=== PATIENT | female | born 1945 | race Caucasian/White ===

== ENCOUNTER 2019-08-26 15:54 | Emergency (ER) | payer MEDICARE, OTHER ==
[2019-08-26] MEDS ORDERED: Amoxicillin/Clavulanate K 875-125 MG Tab PO ONE (16:30)
--- NOTE | 2019-08-26 16:37 | EDM.PDOC ---
ED HPI GENERAL MEDICAL PROBLEM - General Chief Complaint: Skin Complaint Stated Complaint: SKIN COMPLAINT R HAND Time Seen by Provider: 08/26/19 16:05 Source of Information: Reports: Patient History Limitations: Reports: No Limitations - History of Present Illness INITIAL COMMENTS - FREE TEXT/NARRATIVE: Patient is a 73-year-old female who presents with complaints of right thumb pain and rash to the right hand and lower forearm. She states she awoke with the pain and rash this morning. She has no history of gout, however she does have arthritis. There was no known injury to the area. Patient does have a mostly healed scratch on her right forearm which she states was from a cat bite. There was no puncture wound. She states at the time of the injury it was cleansed and bacitracin was applied. Denies any fever, chills, nausea, or vomiting. Right Finger-Thumb Pain Score (Numeric/FACES): 5 - Related Data Allergies Allergy/AdvReac Type Severity Reaction Status Date / Time acyclovir [From Zovirax] Allergy Other Verified 08/26/19 16:08 codeine Allergy Other Verified 08/26/19 16:08 latex Allergy Blisters Verified 08/26/19 16:08 Home Meds: Home Meds Amoxicillin/Clavulanate K [Augmentin 875-125 MG] 1 tab PO BID 10 Days #19 tablet 08/26/19 [Rx] Past Medical History Cardiovascular History: Reports: High Cholesterol, Hypertension Respiratory History: Reports: Sleep Apnea Gastrointestinal History: Reports: GERD Genitourinary History: Reports: Other (See Below) Other Genitourinary History: over active bladder Musculoskeletal History: Reports: Fibromyalgia Psychiatric History: Reports: Depression Oncologic (Cancer) History: Reports: Cervix - Past Surgical History HEENT Surgical History: Reports: Oral Surgery GI Surgical History: Reports: Hernia, Abdominal, Other (See Below) Other GI Surgeries/Procedures: lap band/removal Female Surgical History: Reports: Hysterectomy, Tubal Ligation Musculoskeletal Surgical History: Reports: Arthroscopic Procedure, Other (See Below) Other Musculoskeletal Surgeries/Procedures:: foot sx Social & Family History - Family History Family Medical History: Noncontributory - Tobacco Use Smoking Status *Q: Never Smoker - Caffeine Use Caffeine Use: Reports: None - Recreational Drug Use Recreational Drug Use: No ED ROS GENERAL - Review of Systems Review Of Systems: Comprehensive ROS is negative, except as noted in HPI. ED EXAM, SKIN/RASH Exam: See Below Exam Limited By: No Limitations General Appearance: Alert, WD/WN, No Apparent Distress Respiratory/Chest: No Respiratory Distress, Lungs Clear, Normal Breath Sounds, No Accessory Muscle Use, Chest Non-Tender Cardiovascular: Normal Peripheral Pulses, Regular Rate, Rhythm, No Edema, No Gallop, No JVD, No Murmur, No Rub Extremities: Other (Scattered red welts to the right hand and forearm. Pain to the thenar eminence with palpation or movement of the thumb. Mostly healed healed 1 cm scratch to the right midforearm. 2 cm linear welt to the right lateral wrist.) Neurological: Alert, Oriented, CN II-XII Intact, Normal Cognition, Normal Gait, Normal Reflexes, No Motor/Sensory Deficits Psychiatric: Normal Affect, Normal Mood Course - Vital Signs Last Recorded V/S: Last Vital Signs Temp 97.9 F 08/26/19 16:05 Pulse 100 08/26/19 16:05 Resp 15 08/26/19 16:05 BP 134/79 08/26/19 16:05 Pulse Ox 98 08/26/19 16:05 - Orders/Labs/Meds Orders: Active Orders 24 hr Category Date Time Status Amoxicillin/Clavulanate K [Augmentin 875 MG/125 MG] Med 08/26/19 16:30 Once 1 tab PO ONETIME ONE DME for Discharge [COMM] Routine Oth 08/26/19 16:31 Ordered - Re-Assessments/Exams Free Text/Narrative Re-Assessment/Exam: On exam, patient skin assessment almost has the appearance of allergic urticaria , however in light of the cat bite on her forearm pain in her thenar eminence, we will treat with Augmentin. Also ordered a thumb spica splint for comfort. Discharge instructions as noted. Departure - Departure Time of Disposition: 16:37 Disposition: Home, Self-Care 01 Condition: Fair Clinical Impression: Hand pain, right - Discharge Information *PRESCRIPTION DRUG MONITORING PROGRAM REVIEWED*: No *COPY OF PRESCRIPTION DRUG MONITORING REPORT IN PATIENT RAFAEL: No Prescriptions: Amoxicillin/Clavulanate K [Augmentin 875-125 MG] 1 tab PO BID 10 Days #19 tablet Referrals: Burke Nesbitt MD [Primary Care Provider] - Additional Instructions: You were seen in the emergency department today for right thumb pain as well as a rash to your right hand and forearm. As we discussed, with the cat bite on your forearm, there is a possibility of infection; therefore, you have been started on Augmentin. Take this medication as prescribed and ensure you complete the entire course. You may use over the counter Aleve to treat the pain an discomfort. You have also been provided with a right wrist splint that you may wear for comfort. You should see improvement in your symptoms over the next 48-72 hours. If you experience any worsening symptoms of fail to improve as expected, please return to the emergency department or follow-up with your primary care provider. Sepsis Event Note - Evaluation Sepsis Screening Result: No Definite Risk - Focused Exam Vital Signs: Vital Signs Temp Pulse Resp BP Pulse Ox 08/26/19 16:05 97.9 F 100 15 134/79 98 Date Exam was Performed: 08/26/19 Time Exam was Performed: 16:32 - My Orders Last 24 Hours: My Active Orders 08/26/19 16:30 Amoxicillin/Clavulanate K [Augmentin 875 MG/125 MG] 1 tab PO ONETIME ONE 08/26/19 16:31 DME for Discharge [COMM] Routine - Assessment/Plan Last 24 Hours: My Active Orders 08/26/19 16:30 Amoxicillin/Clavulanate K [Augmentin 875 MG/125 MG] 1 tab PO ONETIME ONE 08/26/19 16:31 DME for Discharge [COMM] Routine
== END 2019-08-26 16:52 | disposition home or self-care (01) ==
LOC: JD.ED 15:54
DX: M79.641 Pain in right hand (principal); L50.0 Allergic urticaria; I10 Essential (primary) hypertension; Z88.5 Allergy status to narcotic agent; Z91.040 Latex allergy status; Z88.8 Allergy status to other drugs, medicaments and biological substances
CPT/HCPCS: 29125; 99283; A9270

== ENCOUNTER 2019-10-08 15:43 | Emergency (ER) | payer MEDICARE, OTHER ==
--- NOTE | 2019-10-08 16:35 | EDM.PDOC ---
ED HPI GENERAL MEDICAL PROBLEM - General Chief Complaint: Abdominal Pain Stated Complaint: SURG TUES DRAINING BLOOD Time Seen by Provider: 10/08/19 16:06 Source of Information: Reports: Patient History Limitations: Reports: No Limitations - History of Present Illness INITIAL COMMENTS - FREE TEXT/NARRATIVE: Patient is a 74-year-old female who presents with complaints of abdominal pain, abdominal bloating, and drainage from her surgical brain site. Patient underwent gastric bypass with Dr. Rossi at [facility] in [place] on Wednesday of this week. She was discharged from the hospital on . States that she did well on . The majority of her postop pain was located in her left lower quadrant abdomen. Wednesday she had some increased abdominal pain however she attributed that to drinking too much fluids. The pain did resolve, however on Wednesday she states that she developed a fever of 99.4. She advises that her discharge papers told her to seek medical attention for any fever above 99.4. She also developed drainage from the incision site where her surgical drain was. Describes it as yellow and blood-tinged. At this time she developed some right-sided abdominal pain which was not present previously. She states that today she had some swelling around the incision site where the drain was present. She applied ice to the area which she states did seem to improve the swelling. She also complains of nausea that started today. Patient was discharged on a full liquid diet for 1 week with no sugar. States that she has been consuming small amounts of liquids. She has not been passing any flatus and has not had any bowel movement since last Wednesday. She feels that her abdomen is distended. Upper Abdominal Pain Score (Numeric/FACES): 8 - Related Data Allergies Allergy/AdvReac Type Severity Reaction Status Date / Time acyclovir [From Zovirax] Allergy Other Verified 10/08/19 15:57 codeine Allergy Other Verified 10/08/19 15:57 latex Allergy Blisters Verified 10/08/19 15:57 Home Meds: Home Meds Amoxicillin/Clavulanate K [Augmentin 875-125 MG] 1 tab PO BID 10 Days #19 tablet 08/26/19 [Rx] Citalopram Hydrobromide [Celexa] 40 mg PO DAILY 08/26/19 [History] Cyclobenzaprine [Flexeril] 10 mg PO BEDTIME 08/26/19 [History] Ezetimibe [Zetia] 10 mg PO DAILY 08/26/19 [History] HCTZ/Triamterene [Maxzide 25-37.5 MG] 1 tab PO DAILY 08/26/19 [History] Lansoprazole [Prevacid] 30 mg PO DAILY 08/26/19 [History] Meloxicam [Mobic] 7.5 mg PO DAILY 08/26/19 [History] Pravastatin Sodium [Pravachol] 40 mg PO DAILY 08/26/19 [History] Solifenacin [Vesicare] 5 mg PO DAILY 08/26/19 [History] Zolpidem Tartrate [Ambien] 5 mg PO BEDTIME 08/26/19 [History] polyethylene glycoL 3350 [MiraLAX] 17 gm PO DAILY PRN 08/26/19 [History] Past Medical History Cardiovascular History: Reports: High Cholesterol, Hypertension Respiratory History: Reports: Sleep Apnea Gastrointestinal History: Reports: GERD Genitourinary History: Reports: Other (See Below) Other Genitourinary History: over active bladder Musculoskeletal History: Reports: Fibromyalgia Psychiatric History: Reports: Depression Oncologic (Cancer) History: Reports: Cervix - Past Surgical History HEENT Surgical History: Reports: Oral Surgery GI Surgical History: Reports: Bariatric Procedure, Hernia, Abdominal, Other ( See Below) Other GI Surgeries/Procedures: lap band/removal Female Surgical History: Reports: Hysterectomy, Tubal Ligation Musculoskeletal Surgical History: Reports: Arthroscopic Procedure, Other (See Below) Other Musculoskeletal Surgeries/Procedures:: foot sx Social & Family History - Family History Family Medical History: Noncontributory - Tobacco Use Smoking Status *Q: Never Smoker - Caffeine Use Caffeine Use: Reports: None - Recreational Drug Use Recreational Drug Use: No ED ROS GENERAL - Review of Systems Review Of Systems: Comprehensive ROS is negative, except as noted in HPI. ED EXAM, GI/ABD - Physical Exam Exam: See Below Exam Limited By: No Limitations General Appearance: Alert, WD/WN, No Apparent Distress Respiratory/Chest: No Respiratory Distress, Lungs Clear, Normal Breath Sounds, No Accessory Muscle Use, Chest Non-Tender Cardiovascular: Normal Peripheral Pulses, Regular Rate, Rhythm, No Edema, No Gallop, No JVD, No Murmur, No Rub GI/Abdominal Exam: Soft, No Mass, Tender (LLQ and right mid abdomen.), Abnormal Bowel Sounds (hypoactive throughout), Other (4 well-healed well approximated laparoscopic surgical sites. 2.5 cm incision to the right lateral of the umbilicus. Incision is well approximated, however is draining a small amount of serosanguineous fluid. No erythema or warmth noted to the wound site.). No : Guarding, Rigid Neurological: Alert, Oriented, CN II-XII Intact, Normal Cognition, Normal Gait, Normal Reflexes, No Motor/Sensory Deficits Psychiatric: Normal Affect, Normal Mood Skin Exam: Warm, Dry, Intact, Normal Color, No Rash Course - Vital Signs Last Recorded V/S: Last Vital Signs Temp 98.6 F 10/08/19 18:09 Pulse 85 10/08/19 18:09 Resp 16 10/08/19 18:09 BP 117/61 10/08/19 18:09 Pulse Ox 100 10/08/19 18:09 - Orders/Labs/Meds Orders: Active Orders 24 hr Category Date Time Status Peripheral IV Care [RC] . DIRECTED Care 10/08/19 16:35 Active Sodium Chloride 0.9% [Saline Flush] Med 10/08/19 16:35 Active 10 ml FLUSH ASDIRECTED PRN Peripheral IV Insertion Adult [OM.PC] Stat Oth 10/08/19 16:35 Ordered Medication Orders Sodium Chloride (Saline Flush) 10 ml FLUSH ASDIRECTED PRN PRN Reason: Keep Vein Open Last Admin: 10/08/19 19:16 Dose: 10 ml Admin: 10/08/19 18:50 Dose: 10 ml Labs: Laboratory Tests 10/08/19 10/08/19 Range/Units 17:16 17:16 WBC 8.78 (3.98-10.04) K/mm3 RBC 4.83 (3.98-5.22) M/mm3 Hgb 13.1 (11.2-15.7) gm/dl Hct 39.7 (34.1-44.9) % MCV 82.2 (79.4-94.8) fl MCH 27.1 (25.6-32.2) pg MCHC 33.0 (32.2-35.5) g/dl RDW Std Deviation 39.4 (36.4-46.3) fL Plt Count 426 H (182-369) K/mm3 MPV 9.0 L (9.4-12.3) fl Neut % (Auto) 61.6 (34.0-71.1) % Lymph % (Auto) 23.6 (19.3-51.7) % [place] % (Auto) 7.2 (4.7-12.5) % Eos % (Auto) 6.0 H (0.7-5.8) Baso % (Auto) 1.0 (0.1-1.2) % Neut # (Auto) 5.41 (1.56-6.13) K/mm3 Lymph # (Auto) 2.07 (1.18-3.74) K/mm3 [place] # (Auto) 0.63 H (0.24-0.36) K/mm3 Eos # (Auto) 0.53 H (0.04-0.36) K/mm3 Baso # (Auto) 0.09 H (0.01-0.08) K/mm3 Sodium 140 (136-145) mEq/L Potassium 3.4 L (3.5-5.1) mEq/L Chloride 102 (98-107) mEq/L Carbon Dioxide 30 (21-32) mEq/L Anion Gap 11.4 (5-15) BUN 15 (7-18) mg/dL Creatinine 0.9 (0.55-1.02) mg/dL Est Cr Clr Drug Dosing 40.58 mL/min Estimated GFR (MDRD) > 60 (>60) mL/min BUN/Creatinine Ratio 16.7 (14-18) Glucose 92 (83-115) mg/dL Calcium 8.7 (8.5-10.1) mg/dL Total Bilirubin 0.8 (0.2-1.0) mg/dL AST 25 (15-37) U/L ALT 66 H (14-59) U/L Alkaline Phosphatase 89 (46-116) U/L Total Protein 6.4 (6.4-8.2) g/dl Albumin 2.8 L (3.4-5.0) g/dl Globulin 3.6 gm/dL Albumin/Globulin Ratio 0.8 L (1-2) Meds: Medications Generic Name Dose Route Start Last Admin Trade Name Freq PRN Reason Stop Dose Admin Sodium Chloride 10 ml 10/08/19 16:35 10/08/19 19:16 Saline Flush FLUSH 10 ml ASDIRECTED PRN Administration Keep Vein Open Discontinued Medications Generic Name Dose Route Start Last Admin Trade Name Audrey PRN Reason Stop Dose Admin Iopamidol 100 ml 10/08/19 19:05 10/08/19 19:16 Isovue-300 (61%) IVPUSH 10/08/19 19:06 100 ml ONETIME ONE Administration - Re-Assessments/Exams Free Text/Narrative Re-Assessment/Exam: Hematology was grossly unremarkable. Findings revealed some abdominal tenderness. The patient was most concerned about the drain incision that has been draining significant amounts of serosanguineous fluid intermittently. She also states that she has not had any form of bowel movement and has not been passing gas since the surgery on Wednesday. Bowel sounds are found to be hypoactive. Abdomen flat and upright was completed results were concerning for either small bowel obstruction or a localized ileus. Called and spoke to Dr. Shepherd at [facility] in [place]. She recommended that we complete an abdomen pelvis CT with IV contrast only. She requested that we send the images to her when available. Patient updated. We will proceed with the CT of the abdomen. 10/08/19 20:19 CT of the abdomen pelvis was completed. Results are significant for a fat- containing anterior abdominal wall hernia to the right of the midline. Also has a loop of mildly dilated small bowel seen in the area of previous bowel surgery. Radiologist read that this may be chronic relating to her surgery. There is no other small bowel dilation seen. He recommends a follow-up study in 24 to 48 hours to ensure that the small bowel dilation has not worsened. It is also read small bilateral pleural effusions with minimal free air in the pelvis. Called [facility] in [place] and spoke to Dr. Shepherd. She has accepted the patient for transfer. Patient is comfortable with going with private vehicle. Plan was to leave the IV intact, however it is not uncomfortable in the location where it is located and the patient requested that remove it. She has been educated to remain n.p.o. while in route to the [place]. Discharge instructions as documented. Departure - Departure Time of Disposition: 20:21 Disposition: DC/Tfer to Acute Hospital 02 Condition: Fair Clinical Impression: Postoperative abdominal pain - Discharge Information Referrals: Burke Nesbitt MD [Primary Care Provider] - Forms: ED Department Discharge Additional Instructions: Admission has been arranged for you to [facility] under the care of Dr. Shepherd. Recommend that you go directly to the ER registration desk at [facility]. Nothing to eat or drink until you have been evaluated by Dr. Shepherd. Sepsis Event Note - Evaluation Sepsis Screening Result: No Definite Risk - Focused Exam Vital Signs: Vital Signs Temp Pulse Resp BP Pulse Ox 10/08/19 18:09 98.6 F 85 16 117/61 100 10/08/19 15:53 97.1 F 109 H 16 135/72 96 Date Exam was Performed: 10/08/19 Time Exam was Performed: 20:19 - My Orders Last 24 Hours: My Active Orders 10/08/19 16:35 Peripheral IV Care [RC] . DIRECTED Sodium Chloride 0.9% [Saline Flush] 10 ml FLUSH ASDIRECTED PRN Peripheral IV Insertion Adult [OM.PC] Stat - Assessment/Plan Last 24 Hours: My Active Orders 10/08/19 16:35 Peripheral IV Care [RC] . DIRECTED Sodium Chloride 0.9% [Saline Flush] 10 ml FLUSH ASDIRECTED PRN Peripheral IV Insertion Adult [OM.PC] Stat
--- NOTE | 2019-10-08 17:25 | CR ---
Abdomen: Supine and upright views the abdomen were obtained. Comparison: No previous study. Several loops of slightly prominent small bowel are noted. Gas and stool is noted within the colon which appears unremarkable. Surgical clips are seen from prior cholecystectomy. Mild degenerative change is scattered within the spine. Calcifications are seen within the pelvis compatible with phleboliths. Impression: 1. Several slightly prominent small bowel loops within the upper abdomen. Proximal small bowel obstruction is possible as well as localized small bowel ileus. 2. Other findings believed to be incidental. Diagnostic code #3 Study was dictated in MDT
[2019-10-08] MEDS: Sodium Chloride 0.9% 10 ML Syringe FLUSH PRN ×2 (18:50→19:16)
[2019-10-08] MEDS ORDERED: Iopamidol 612 MG/ML 100 ML Bottle IVPUSH ONE (19:05)
--- NOTE | 2019-10-08 19:48 | CT ---
CT abdomen and pelvis Technique: Multiple axial sections were obtained from above the dome of the diaphragm inferiorly through the pubic symphysis. Intravenous contrast was utilized. There is some contrast being seen within portions of the colon of uncertain etiology. No oral contrast has been given. Comparison: Prior abdominal x-ray performed earlier on the same day (4:51 PM). Findings: Small bilateral pleural effusions are noted. Liver contains no focal parenchymal abnormality. Spleen appears within normal limits. Prior stomach surgery is noted. Adrenal glands show no nodule. Pancreas is within normal limits. Aorta shows no aneurysm. No retroperitoneal adenopathy or mesenteric abnormalities are seen. Appendix is seen and appears normal in size. Kidneys show symmetric contrast enhancement. Small cyst is noted within each kidney. No pelvic mass or adenopathy is seen. Minimal free fluid within the pelvis is noted. Small right anterior abdominal wall hernia is seen. This contains mostly fat with only a small amount of bulging of small bowel seen into the hernia. There is a loop of mildly prominent small bowel within the upper to midabdomen anteriorly which occurs in an area of anastomotic sutures Bone window settings were reviewed which shows mild scattered degenerative change within the spine. No acute osseous finding is appreciated. Impression: 1. Fat-containing anterior abdominal wall hernia to the right of midline. 2. Loop of mildly dilated small bowel seen in area of previous bowel surgery. This may be chronic and relating to prior surgery. No other small due to bowel dilatation is seen. Follow-up plain film study could be obtained in 24-48 hours to make sure this small bowel dilatation does not worsened. 3. Small bilateral pleural effusions. 4. Minimal free fluid within the pelvis. 5. Prior stomach surgery. Diagnostic code #3 Study was dictated in MDT
== END 2019-10-08 20:45 ==
LOC: JD.ED 15:43
DX: G89.18 Other acute postprocedural pain (principal); R10.32 Left lower quadrant pain; Z88.5 Allergy status to narcotic agent; Z91.040 Latex allergy status; Z88.8 Allergy status to other drugs, medicaments and biological substances; Z98.84 Bariatric surgery status
CPT/HCPCS: 36415; 74019; 74177; 80053; 85025; 99285; Q9967

== ENCOUNTER 2020-10-16 17:25 | Emergency (ER) | payer MEDICARE, OTHER ==
[2020-10-16] MEDS ORDERED: Diphtheria,Pertussis(Acell),Tetanus Vaccine 0.5 ML Syringe IM ONE (17:56)
[2020-10-16] MEDS ORDERED: Lidocaine 1% 10 ML MDV INJECT ONE (17:56)
--- NOTE | 2020-10-16 18:31 | EDM.PDOC ---
ED HPI GENERAL MEDICAL PROBLEM - General Chief Complaint: Laceration Stated Complaint: L THUMB LAC Time Seen by Provider: 10/16/20 17:35 Source of Information: Reports: Patient, RN Notes Reviewed History Limitations: Reports: No Limitations - History of Present Illness INITIAL COMMENTS - FREE TEXT/NARRATIVE: Patient is 75-year-old female who presents to the ED for a left thumb laceration. Patient notes she was opening a unicorn toy that had the hard plastic shell on it with a pocket knife, when the knife came free from the packaging, and she ended up stabbing her left thumb between her thumb and her index finger, this is on the posterior aspect of her hand, and there is another small laceration just distal to the entry wound where she states the tip of the knife came out. She is complaining of some numbness to her thumb however she has all range of motion without difficulty. Patient notes that the knife came out intact and does not think that there was any sort of metal left within her thumb. Other than this, she has had no fevers or chills, cough/ shortness of breath, nausea/vomiting/diarrhea. She does appreciate some mild bruising to the area, that is roughly a $0.50 piece size. Patient is not sure of her last tetanus booster. Left Hand Pain Score (Numeric/FACES): 4 - Related Data Allergies Allergy/AdvReac Type Severity Reaction Status Date / Time acyclovir [From Zovirax] Allergy Other Verified 10/16/20 17:47 codeine Allergy Other Verified 10/16/20 17:47 latex Allergy Blisters Verified 10/16/20 17:47 Home Meds: Home Meds Amoxicillin/Clavulanate K [Augmentin 875-125 MG] 1 tab PO BID 10 Days #19 tablet 08/26/19 [Rx] Citalopram Hydrobromide [Celexa] 40 mg PO DAILY 08/26/19 [History] Cyclobenzaprine [Flexeril] 10 mg PO BEDTIME 08/26/19 [History] Ezetimibe [Zetia] 10 mg PO DAILY 08/26/19 [History] HCTZ/Triamterene [Maxzide 25-37.5 MG] 1 tab PO DAILY 08/26/19 [History] Lansoprazole [Prevacid] 30 mg PO DAILY 08/26/19 [History] Meloxicam [Mobic] 7.5 mg PO DAILY 08/26/19 [History] Pravastatin Sodium [Pravachol] 40 mg PO DAILY 08/26/19 [History] Solifenacin [Vesicare] 5 mg PO DAILY 08/26/19 [History] Zolpidem Tartrate [Ambien] 5 mg PO BEDTIME 08/26/19 [History] polyethylene glycoL 3350 [MiraLAX] 17 gm PO DAILY PRN 08/26/19 [History] Past Medical History Cardiovascular History: Reports: High Cholesterol, Hypertension Respiratory History: Reports: Sleep Apnea Gastrointestinal History: Reports: GERD Genitourinary History: Reports: Other (See Below) Other Genitourinary History: over active bladder Musculoskeletal History: Reports: Fibromyalgia Neurological History: Reports: CVA, Migraines Other Neuro History: 1983 Psychiatric History: Reports: Depression Oncologic (Cancer) History: Reports: Cervix - Past Surgical History HEENT Surgical History: Reports: Oral Surgery GI Surgical History: Reports: Bariatric Procedure, Cholecystectomy, Hernia, Abdominal, Other (See Below) Other GI Surgeries/Procedures: lap band/removal, gastric bipass -september 2019 Female Surgical History: Reports: Hysterectomy, Tubal Ligation Musculoskeletal Surgical History: Reports: Arthroscopic Procedure, Other (See Below) Other Musculoskeletal Surgeries/Procedures:: foot sx Social & Family History - Family History Family Medical History: No Pertinent Family History - Tobacco Use Tobacco Use Status *Q: Never Tobacco User - Caffeine Use Caffeine Use: Reports: None - Recreational Drug Use Recreational Drug Use: No ED ROS GENERAL - Review of Systems Review Of Systems: Comprehensive ROS is negative, except as noted in HPI. ED EXAM, SKIN/RASH Exam: See Below Exam Limited By: No Limitations General Appearance: Alert, WD/WN, No Apparent Distress Respiratory/Chest: No Respiratory Distress, Lungs Clear, Normal Breath Sounds, No Accessory Muscle Use, Chest Non-Tender Cardiovascular: Normal Peripheral Pulses, Regular Rate, Rhythm, No Edema Peripheral Pulses: 2+: Radial (L), Radial (R) Extremities: Normal Range of Motion, Normal Capillary Refill Neurological: Alert, Oriented, Normal Cognition, Sensory/Motor Deficit (questionable sensory deficit of left thumb) Psychiatric: Normal Affect, Normal Mood Skin: Warm, Dry, Ecchymosis (Roughly $0.50 size area to the posterior aspect of the patient's left hand, this is between the thumb and index finger), Wound/Incision (Roughly 1 cm laceration to the posterior left hand between the thumb and index finger, with another very small ada type laceration where the knife exited her hand. This was fairly superficial.) ED SKIN PROCEDURES - Laceration/Wound Repair Left Posterior Digit - 1st (Thumb) Appearance: Superficial, Linear, Clean Distal NVT: Neuro & Vascular Intact, No Tendon Injury Anesthetic Type: Local Local Anesthesia - Lidocaine (Xylocaine): 1% Plain Local Anesthetic Volume: 4cc Skin Prep: Chlorhexidine (Hibiciens), Saline Exploration/Debridement/Repair: Wound Explored, In a Bloodless Field, Explored t o Base, No Foreign Material Found Closed with: Sutures Lac/Wound length In cm: 1 Suture Size: 4-0 # of Sutures: 3 Suture Type: Prolene, Interrupted, Simple Sterile Dressing Applied: Nurse Tetanus Status Addressed: Yes Complications: No Course - Vital Signs Last Recorded V/S: Last Vital Signs Temp 97.0 F 10/16/20 17:35 Pulse 102 H 10/16/20 17:35 Resp 20 10/16/20 17:35 BP 152/72 H 10/16/20 17:35 Pulse Ox 97 10/16/20 17:35 - Orders/Labs/Meds Orders: Active Orders 24 hr Category Date Time Status Vaccines to be Administered [RC] PER UNIT ROUTINE Care 10/16/20 17:56 Ordered Meds: Medications Discontinued Medications Generic Name Dose Route Start Last Admin Trade Name Freq PRN Reason Stop Dose Admin Diphtheria/Tetanus/Acell Pertussis 0.5 ml 10/16/20 17:56 10/16/20 18:14 Diphtheria,Pertussis(Acell),Tetanus Vaccine 0.5 Ml Syringe IM 10/16/20 17:57 0.5 ml .ONCE ONE Administration Lidocaine HCl 10 ml 10/16/20 17:56 10/16/20 18:14 Lidocaine 1% 10 Ml Mdv INJECT 10/16/20 17:57 10 ml ONETIME ONE Administration Departure - Departure Time of Disposition: 18:30 Disposition: Home, Self-Care 01 Condition: Good Clinical Impression: Laceration of left thumb Qualifiers: Encounter type: initial encounter Damage to nail status: without damage Foreign body presence: without foreign body Qualified Code(s): S61.012A - Laceration without foreign body of left thumb without damage to nail, initial encounter - Discharge Information *PRESCRIPTION DRUG MONITORING PROGRAM REVIEWED*: No *COPY OF PRESCRIPTION DRUG MONITORING REPORT IN PATIENT RAFAEL: No Instructions: Sutures, Des, or Adhesive Wound Closure, [id number] Referrals: Jyoti Alvarenga MD [Primary Care Provider] - Forms: ED Department Discharge, ED Return to Work/School Form Additional Instructions: You have been evaluated in the ED for your laceration. Sutures will need to stay in for 7-10 days. You may return to the ED or any clinic for removal. Please keep this area clean and dry, you may cleanse with regular soap and water. No vigorous scrubbing. Please try to avoid submerging the affected area in water for prolonged periods of time until the sutures are removed. Watch out for signs of infection like increased redness, swelling, pain at the laceration site, or if you should develop any fevers or chills. If you are still having issues with numbness to your thumb, in a few weeks time recommend you follow-up with the hand surgeon that you dealt with for your previous hand surgery for further evaluation and management. Please return to ED if your symptoms change or worsen. Sepsis Event Note (ED) - Evaluation Sepsis Screening Result: No Definite Risk - Focused Exam Vital Signs: Vital Signs Temp Pulse Resp BP Pulse Ox 10/16/20 17:35 97.0 F 102 H 20 152/72 H 97 - My Orders Last 24 Hours: My Active Orders 10/16/20 17:56 Vaccines to be Administered [RC] PER UNIT ROUTINE - Assessment/Plan Last 24 Hours: My Active Orders 10/16/20 17:56 Vaccines to be Administered [RC] PER UNIT ROUTINE
== END 2020-10-16 19:06 | disposition home or self-care (01) ==
LOC: JD.ED 17:25
DX: S61.012A Laceration without foreign body of left thumb without damage to nail, initial encounter (principal); E78.00 Pure hypercholesterolemia, unspecified; I10 Essential (primary) hypertension; K21.9 Gastro-esophageal reflux disease without esophagitis; Z23 Encounter for immunization; Z91.040 Latex allergy status; Z88.8 Allergy status to other drugs, medicaments and biological substances; Z88.5 Allergy status to narcotic agent; Z79.899 Other long term (current) drug therapy; W26.0XXA Contact with knife, initial encounter
CPT/HCPCS: 12001; 90471; 90715; 99282; 99282-25

== ENCOUNTER 2021-01-02 07:48 | Day surgery (SDC) | payer MEDICARE, OTHER ==
--- NOTE | 2021-01-02 06:33 | PCM.PREANE ---
Preanesthetic Assessment - Procedure Proposed Procedure: Colonoscopy - Anesthesia/Transfusion/Family Hx Anesthesia History: Prior Anesthesia Without Reaction - Allergies Allergies/Adverse Reactions: Allergies Allergy/AdvReac Type Severity Reaction Status Date / Time acyclovir [From Zovirax] Allergy Other Verified 01/01/21 16:27 codeine Allergy Other Verified 01/01/21 16:27 latex Allergy Blisters Verified 01/01/21 16:27 - Acknowledgements Anesthesia Type Planned: MAC Pt an Appropriate Candidate for the Planned Anesthesia: Yes Alternatives and Risks of Anesthesia Discussed w Pt/Guardian: Yes Pt/Guardian Understands and Agrees with Anesthesia Plan: Yes PreAnesthesia Questionnaire HEENT History: Reports: Cataract Other HEENT History: Lasik Cardiovascular History: Reports: High Cholesterol, Hypertension, Other (See Below) Other Cardiovascular History: palpitations Respiratory History: Reports: Sleep Apnea, SOB Other Respiratory History: viral URI with cough, shortness of breath with exertion Gastrointestinal History: Reports: Colon Polyp, GERD, Other (See Below) Other Gastrointestinal History: colitis, LLQ pain, melena, gastric bypass Genitourinary History: Reports: Other (See Below) Other Genitourinary History: over active bladder NURSING SURGICAL SERVICES DIRECTOR History: Reports: None Musculoskeletal History: Reports: Fibromyalgia Other Musculoskeletal History: muscle cramps Neurological History: Reports: CVA, Headaches, Chronic, Migraines Other Neuro History: 1981 Psychiatric History: Reports: Depression Other Psychiatric History: insomnia Endocrine/Metabolic History: Reports: Obesity/BMI 30+ Hematologic History: Reports: None Immunologic History: Reports: None Oncologic (Cancer) History: Reports: Cervix Dermatologic History: Reports: Other (See Below) Other Dermatologic History: cold sores, seborrheic keratosis, skin tag - Past Surgical History Head Surgeries/Procedures: Reports: None HEENT Surgical History: Reports: LASIK, Oral Surgery Respiratory Surgical History: Reports: None GI Surgical History: Reports: Bariatric Procedure, Cholecystectomy, Hernia, Abdominal, Other (See Below) Other GI Surgeries/Procedures: lap band/removal, gastric bypass -september 2019 Female Surgical History: Reports: Hysterectomy, Tubal Ligation Endocrine Surgical History: Reports: None Musculoskeletal Surgical History: Reports: Arthroscopic Procedure, Other (See Below) Other Musculoskeletal Surgeries/Procedures:: foot sx Oncologic Surgical History: Reports: None Dermatological Surgical History: Reports: None - SUBSTANCE USE Tobacco Use Status *Q: Never Tobacco User Recreational Drug Use History: No - HOME MEDS Home Medications: Home Meds Citalopram Hydrobromide [Celexa] 40 mg PO DAILY 08/26/19 [History] Cyclobenzaprine [Flexeril] 10 mg PO BID 08/26/19 [History] Zolpidem Tartrate [Ambien] 5 mg PO BEDTIME 08/26/19 [History] polyethylene glycoL 3350 [MiraLAX] 17 gm PO DAILY PRN 08/26/19 [History] Calcium Carbonate [Calcium] 500 mg PO DAILY 01/01/21 [History] Cholecalciferol (Vitamin D3) [Vitamin D3] 1,000 unit PO DAILY 01/01/21 [History] Multivitamin 1 tab PO DAILY 01/01/21 [History] valACYclovir [Valtrex] 1,000 mg PO ASDIRECTED PRN 01/01/21 [History] - CURRENT (IN HOUSE) MEDS Current Meds: Current Medications Lactated Ringer's (Ringers, Lactated) 1,000 mls @ 125 mls/hr IV ASDIRECTED ELIZABETH Stop: 01/02/21 23:00 Lidocaine/Sodium Bicarbonate (Lidocaine 1%/Sod Bicarbonate In Ns 8.4% 1 Ml Syringe) 0.25 ml IDERM ONETIME PRN PRN Reason: Prior to IV Start Stop: 01/02/21 18:00 Sodium Chloride (Sodium Chloride 0.9% 10 Ml Syringe) 10 ml FLUSH ASDIRECTED PRN PRN Reason: Keep Vein Open Stop: 01/02/21 18:00
[~2021-01-02 07:48] MED LIST: Lactated Ringers 1,000 ML IV SCH; Lidocaine 1%/Sod Bicarbonate in NS 8.4% 1 ML Syringe IDERM PRN; Propofol 200 MG/20 ML SDV ONE; Sodium Chloride 0.9% 10 ML Syringe FLUSH PRN
--- NOTE | 2021-01-02 08:15 | PCM.PREANE ---
Preanesthetic Assessment - Procedure Proposed Procedure: Diagnostic Colonoscopy - Anesthesia/Transfusion/Family Hx Anesthesia History: Prior Anesthesia Without Reaction Family History of Anesthesia Reaction: Yes (grand daughter heart rate drops during anesthesia) Transfusion History: No Prior Transfusion(s) - Review of Systems General: No Symptoms Pulmonary: No Symptoms Cardiovascular: Dyspnea on Exertion Gastrointestinal: No Symptoms Neurological: Headache Other: Reports: Depression, Anxiety - Physical Assessment NPO Status Date: 01/01/21 NPO Status Time: 00:00 Height: 1.52 m Weight: 78 kg ASA Class: 3 Mental Status: Alert & Oriented x3 Dentition: Reports: [place](s), Bridge Thyro-Mental Finger Breadths: 2 Mouth Opening Finger Breadths: 2 ROM/Head Extension: Limited/Partial Lungs: Clear to Auscultation, Normal Respiratory Effort Cardiovascular: Regular Rate, Regular Rhythm - Allergies Allergies/Adverse Reactions: Allergies Allergy/AdvReac Type Severity Reaction Status Date / Time acyclovir [From Zovirax] Allergy Other Verified 01/01/21 16:27 codeine Allergy Other Verified 01/01/21 16:27 latex Allergy Blisters Verified 01/01/21 16:27 - Blood Blood Available: No Product(s) Available: None - Anesthesia Plan Pre-Op Medication Ordered: None - Acknowledgements Anesthesia Type Planned: MAC Pt an Appropriate Candidate for the Planned Anesthesia: Yes Alternatives and Risks of Anesthesia Discussed w Pt/Guardian: Yes Pt/Guardian Understands and Agrees with Anesthesia Plan: Yes PreAnesthesia Questionnaire HEENT History: Reports: Cataract Other HEENT History: Lasik Cardiovascular History: Reports: High Cholesterol, Hypertension, Other (See Below) Other Cardiovascular History: palpitations Respiratory History: Reports: Sleep Apnea, SOB Other Respiratory History: viral URI with cough, shortness of breath with exertion Gastrointestinal History: Reports: Colon Polyp, GERD, Other (See Below) Other Gastrointestinal History: colitis, LLQ pain, melena, gastric bypass Genitourinary History: Reports: Other (See Below) Other Genitourinary History: over active bladder [employer]HT[employer]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: Reports: None Musculoskeletal History: Reports: Fibromyalgia Other Musculoskeletal History: muscle cramps Neurological History: Reports: CVA, Headaches, Chronic, Migraines Other Neuro History: 1982 Psychiatric History: Reports: Depression Other Psychiatric History: insomnia Endocrine/Metabolic History: Reports: Obesity/BMI 30+ Hematologic History: Reports: None Immunologic History: Reports: None Oncologic (Cancer) History: Reports: Cervix Dermatologic History: Reports: Other (See Below) Other Dermatologic History: cold sores, seborrheic keratosis, skin tag - Past Surgical History Head Surgeries/Procedures: Reports: None HEENT Surgical History: Reports: LASIK, Oral Surgery Respiratory Surgical History: Reports: None GI Surgical History: Reports: Bariatric Procedure, Cholecystectomy, Hernia, Abdominal, Other (See Below) Other GI Surgeries/Procedures: lap band/removal, gastric bypass -september 2019 Female Surgical History: Reports: Hysterectomy, Tubal Ligation Endocrine Surgical History: Reports: None Musculoskeletal Surgical History: Reports: Arthroscopic Procedure, Other (See Below) Other Musculoskeletal Surgeries/Procedures:: foot sx Oncologic Surgical History: Reports: None Dermatological Surgical History: Reports: None - SUBSTANCE USE Tobacco Use Status *Q: Never Tobacco User Tobacco Use Within Last Twelve Months: No Second Hand Smoke Exposure: No Days Per Week of Alcohol Use: 0 Number of Drinks Per Day: 0 Total Drinks Per Week: 0 Recreational Drug Use History: No - HOME MEDS Home Medications: Home Meds Citalopram Hydrobromide [Celexa] 40 mg PO DAILY 08/26/19 [History] Cyclobenzaprine [Flexeril] 10 mg PO BID 08/26/19 [History] Zolpidem Tartrate [Ambien] 5 mg PO BEDTIME 08/26/19 [History] polyethylene glycoL 3350 [MiraLAX] 17 gm PO DAILY PRN 08/26/19 [History] Calcium Carbonate [Calcium] 500 mg PO DAILY 01/01/21 [History] Cholecalciferol (Vitamin D3) [Vitamin D3] 1,000 unit PO DAILY 01/01/21 [History] Multivitamin 1 tab PO DAILY 01/01/21 [History] valACYclovir [Valtrex] 1,000 mg PO ASDIRECTED PRN 01/01/21 [History] - CURRENT (IN HOUSE) MEDS Current Meds: Current Medications Lactated Ringer's (Ringers, Lactated) 1,000 mls @ 125 mls/hr IV ASDIRECTED ELIZABETH Stop: 01/02/21 23:00 Lidocaine/Sodium Bicarbonate (Lidocaine 1%/Sod Bicarbonate In Ns 8.4% 1 Ml Syringe) 0.25 ml IDERM ONETIME PRN PRN Reason: Prior to IV Start Stop: 01/02/21 18:00 Sodium Chloride (Sodium Chloride 0.9% 10 Ml Syringe) 10 ml FLUSH ASDIRECTED PRN PRN Reason: Keep Vein Open Stop: 01/02/21 18:00 Discontinued Medications Propofol (Propofol 200 Mg/20 Ml Sdv) Confirm Administered Dose 200 mg .ROUTE .STK-MED ONE Stop: 01/02/21 06:55
[2021-01-02] MEDS ORDERED: Propofol 200 MG/20 ML SDV ONE ×2 (08:27→09:13)
[2021-01-02] MEDS ORDERED: Lidocaine 1% 4 ML ONE (08:31)
[2021-01-02] MEDS ORDERED: Midazolam 1 MG/ML 2 ML SDV ONE (08:48)
[2021-01-02] MEDS ORDERED: Labetalol 100 MG/20 ML MDV ONE (09:22)
--- NOTE | 2021-01-02 09:49 | PCM.PRNOTE ---
- Free Text/Narrative Note: Date: 01/02/2021 Procedure: diagnostic colonoscopy Indication: rectal bleeding History: last colonoscopy about 5 years ago with report of a few polyps removed Endoscopist: Carlos Davidson MD Findings: Adequate prep. Cecum reached. A total of 7 polyps were removed, with the largest measuring approximately 1.5 cm. No appreciable diverticulosis or hemorrhoidal disease. Detailed Report: Patient was taken to the endoscopy suite and placed in left lateral decubitus position. CPAP was applied. Timeout was performed and monitored anesthesia care was initiated. Visual inspection of the anus revealed no abnormality. Digital rectal exam was unremarkable. The colonoscope was inserted and advanced all the way to the cecum. This was quite challenging due to redundancy and multiple turns the colon. Eventually the patient was positioned supine with abdominal pressure applied in order to successfully reach the cecum. The ileocecal valve was visualized. Prep was adequate for visualization. Within the cecum, 3 pedunculated polyps in close proximity were identified. The largest of these measured 1.5 cm the other 2 were less than a centimeter. All were removed using hot snare polypectomy technique. The scope was slowly withdrawn and mucosal surfaces carefully inspected in the ascending colon and near the hepatic flexure, 2 smaller polyps were identified and removed with cold jumbo forceps. 2 additional slightly larger pedunculated polyps around 1 cm in size were identified at the start of the transverse colon and were removed using hot snare. An additional small polyp in the transverse colon was removed using jumbo forceps. No significant diverticulosis was appreciated. No significant hemorrhoidal disease was appreciated within the rectum. Air was suctioned from the rectum prior to withdrawal of the scope. The patient tolerated the procedure well.
--- NOTE | 2021-01-02 09:54 | PCM48HPAN ---
Post Anesthesia Note - EVALUATION WITHIN 48HRS OF ANESTHETIC Vital Signs in Normal Range: Yes Patient Participated in Evaluation: Yes Respiratory Function Stable: Yes Airway Patent: Yes Cardiovascular Function Stable: Yes Hydration Status Stable: Yes Pain Control Satisfactory: Yes Nausea and Vomiting Control Satisfactory: Yes Mental Status Recovered: Yes Vital Signs: Last Vital Signs Temp 36.3 C 01/02/21 08:15 Pulse 97 01/02/21 08:15 Resp 16 01/02/21 08:15 BP 145/92 H 01/02/21 08:15 Pulse Ox 99 01/02/21 08:15 - COMMENTS/OBSERVATIONS Free Text/Narrative:: NO ANESTHESIA COMPLICATIONS NOTED
[2021-01-02 10:27] VITALS: BP 149/62; PULSE 73
== END 2021-01-02 10:33 | disposition home or self-care (01) ==
LOC: JD.SDS 07:48
PROVIDERS: ATTEND Surgery
DX: D12.0 Benign neoplasm of cecum (principal); D12.2 Benign neoplasm of ascending colon; D12.3 Benign neoplasm of transverse colon; I10 Essential (primary) hypertension; E66.9 Obesity, unspecified; G47.33 Obstructive sleep apnea (adult) (pediatric); E78.5 Hyperlipidemia, unspecified; G47.00 Insomnia, unspecified; Z98.84 Bariatric surgery status; Z88.5 Allergy status to narcotic agent; Z91.040 Latex allergy status; Z88.8 Allergy status to other drugs, medicaments and biological substances; Z79.899 Other long term (current) drug therapy; Z68.34 Body mass index [BMI] 34.0-34.9, adult
CPT/HCPCS: 00811; 45380; 45385; 88305; 99100; J2250; J2704; J3490; J7120